=== PATIENT | male | born 1995 | race Caucasian/White ===

== ENCOUNTER 2016-11-27 17:30 | Emergency (ER) | payer OTHER ==
[2016-11-27 17:44] VITALS: RESP 16; TEMP 98.2
--- NOTE | 2016-11-27 18:36 | EDPHY ---
H & P Smoking Status: Never smoked Time Seen by Provider: 11/27/16 17:50 HPI/ROS: CHIEF COMPLAINT: Right 3rd MCP pain HISTORY OF PRESENT ILLNESS: 21-year-old [id number] male was playing a punching video game last evening and he punched the object and is now complaining of pain to the 3rd MCP of his right hand. No paresthesia no sensory or motor deficit. He denies impacting a person or assault. Tetanus is up-to-date PHYSICAL EXAM (Prior to examination, patient consented to physical exam, hands were washed and my usual and customary physical exam procedures followed) 1) GENERAL: Well-developed, well-nourished, alert and oriented. Appears to be in no acute distress. 2) HEAD: Normocephalic 3) HEENT: Pupils equal, round, reactive to light bilaterally. 4) LUNGS: Breathing comfortably. 5) MUSCULOSKELETAL: Tender to palpation right 3rd distal metacarpal with no shortening no malrotation, normal cascading of digits, Soft compartments. Normal coloration. No signs of infection. Negative kanavel. No pain with axial loading of the 3rd MCP joint or other joints. Mild tenderness to palpation with range of motion of the 3rd MCP 6) SKIN: abrasion to the right 3rd MCP dorsal aspect with no evidence of septic arthritis or fight bite. 7) VASCULAR: pulses and cap refill present are brisk 8) NEUROLOGIC: Radial, ulnar, median nerve function intact with no deficits appreciated on exam DIFFERENTIAL DIAGNOSIS: in no particular order including but not limited to fracture, sprain, compartment syndrome Procedure: Splint A volar Orthoglass splint was applied by ER inorganic chemical technician. After application of the splint I returned and re-examined the patient. The splint was adequately immobilizing the joint and distal to the splint the patient's circulation and sensation were intact. Patient shows no signs of compartment syndrome. Was given orthopedic precautions. (Kalpesh Mathis) Constitutional: Initial Vital Signs Temperature (C) 36.8 C 11/27/16 17:35 Heart Rate 63 11/27/16 17:35 Respiratory Rate 16 11/27/16 17:35 Blood Pressure 130/75 H 08/05/17 17:35 O2 Sat (%) 96 11/27/16 17:35 O2 Delivery Mode Room Air Allergies/Adverse Reactions: Penicillins Allergy (Mild, Verified 11/27/16 17:42) Rash Home Medications: Medication Instructions Recorded Ibuprofen [Motrin (*)] 800 mg PO Q6 #15 tab 11/27/16 MDM/Departure - MDM Imaging Results: images reviewed by myself (Kalpesh Mathis) ED Course/Re-evaluation: This patient denies assaulting a person, states that this was in a video game only. He has no evidence of septic arthritis such as fight bite injury. His x- ray shows no definitive osseous injury. I have recommended follow-up with Hand surgery and have immobilized the area. Definitely if he develops erythema or decreased range of motion needs to return to the ER immediately for re- evaluation. Usual and customary orthopedic precautions and instructions provided. (Kalpesh Mathis) The patient was evaluated and managed by the physician visitor service assistant. I have reviewed this chart and I agree with the findings and plan of care as documented , as indicated by my signature. I am the secondary supervising physician. ( Tianna Echols) - Depart Disposition: Home, Routine, Self-Care Clinical Impression: Injury of right hand Qualifiers: Encounter type: initial encounter Qualified Code(s): S69.91XA - Unspecified injury of right wrist, hand and finger(s), initial encounter Condition: Good Instructions: Hand Sprain (ED) Additional Instructions: Return to the ER immediately if you experience discoloration, have worsening pain, numbness, tingling, or any other symptoms that concern you. If you received x-rays in the emergency department today, be advised, that ligamentous , tendon, muscular, and other non-bony injury cannot be fully ruled out. Try to keep your affected extremity elevated above the level of your chest, and keep cold packs on the affected area, for the next 48 hours. Prescriptions: Ibuprofen [Motrin (*)] 800 mg PO Q6 #15 tab Referrals: Kris Tapia MD [Medical Doctor] - 2-3 days without fail
[2016-11-27 19:07] VITALS: BP 131/87; PULSE 65; O2SAT 98
== END 2016-11-27 19:07 | disposition home or self-care (01) ==
DX: S69.91XA Unspecified injury of right wrist, hand and finger(s), initial encounter (principal); W22.8XXA Striking against or struck by other objects, initial encounter; Y99.8 Other external cause status; Y93.89 Activity, other specified

== ENCOUNTER 2016-11-29 19:28 | Emergency (ER) | payer OTHER ==
[2016-11-29 19:38] VITALS: TEMP 98.2
--- NOTE | 2016-11-29 20:29 | EDPHY ---
H & P Smoking Status: Never smoked Time Seen by Provider: 11/29/16 19:44 HPI/ROS: CHIEF COMPLAINT: right hand recheck HISTORY OF PRESENT ILLNESS: 21-year-old male presents emergency department for a right hand recheck. He was seen in the emergency department 2 days ago after he accidentally punched an arcade game. He had an x-ray that was normal and was splinted. Patient reports he was and instructed to come back here in 3 days for splint removal. Patient has an orthopedic appointment on Tuesday. He reports his pain is gone. He says he does have some swelling in his right middle finger though has 0 pain. No numbness or tingling in this finger. (Olga Fuentes) Physical Exam: GEN: Awake, alert, oriented, no acute distress RESP: nl resp effort MSK: Right hand with full active range of motion against resistance, superficial abrasion to dorsal aspect of right hand over MCP joint, cap refill less than 2 seconds, sensation intact to light touch SKIN: Superficial abrasion to dorsal aspect right hand over MCP joint, no surrounding erythema or cellulitis (Olga Fuentes) Constitutional: Initial Vital Signs Temperature (C) 36.8 C 11/29/16 19:35 Heart Rate 76 11/29/16 19:35 Respiratory Rate 18 11/29/16 19:35 Blood Pressure 136/55 H 11/29/16 19:35 O2 Sat (%) 97 11/29/16 19:35 O2 Delivery Mode Room Air Allergies/Adverse Reactions: Penicillins Allergy (Mild, Verified 11/27/16 17:42) Rash Home Medications: Medication Instructions Recorded Ibuprofen [Motrin (*)] 800 mg PO Q6 #15 tab 11/27/16 MDM/Departure - [facility] ED Course/Re-evaluation: I did not see this patient while he was in the emergency department. However his care was discussed with the nurse practitioner while the patient was in the department. I agree with treatment plan and management (Colt Esteves) - Depart Disposition: Home, Routine, Self-Care Clinical Impression: Injury of right hand Qualifiers: Encounter type: subsequent encounter Qualified Code(s): S69.91XD - Unspecified injury of right wrist, hand and finger(s), subsequent encounter Condition: Good Instructions: Hand Sprain (ED) Additional Instructions: Rest, ice, elevate, follow up with orthopedist at your scheduled appointment for any continued pain. Return to the emergency department for any fevers, redness, increased pain, any new symptoms or concerns. Referrals: Daniel Núñez MD [Medical Doctor] - As per Instructions (hand doctor general manager road production)
[2016-11-29 20:45] VITALS: BP 130/60; PULSE 72; RESP 16; O2SAT 98
== END 2016-11-29 20:43 | disposition home or self-care (01) ==
DX: S69.91XD Unspecified injury of right wrist, hand and finger(s), subsequent encounter (principal); X58.XXXD Exposure to other specified factors, subsequent encounter